=== PATIENT | male | born 1950 | race Caucasian/White ===

== ENCOUNTER 2021-06-29 15:00 | Observation (INO) | payer OTHER ==
[~2021-06-29] VITALS: Ht 188 cm; Wt 93.0 kg
[2021-06-29 09:46] LABS: BASOPHILS % (AUTO) 1.4 % (0.0-5.0); EOSINOPHILS % (AUTO) 1.9 % (0.0-8.0); HEMATOCRIT 44.9 % (42-54); LYMPHOCYTES % (AUTO) 16.9 % (21.0-51.0); MEAN CORPUSCULAR HEMOGLOBIN 31.6 pg (27.0-33.0); MEAN CORPUSCULAR HGB CONC 33.2 g/dL (32.0-36.0); MEAN CORPUSCULAR VOLUME 95.1 fL (79-99); NEUTROPHILS % (AUTO) 67.4 % (40.0-77.0); PLATELET COUNT (AUTO) 246 K/uL (130-400); RED BLOOD CELL COUNT(AUTO) 4.72 MIL/uL (4.50-6.20); RED CELL DISTRIBUTION WIDTH 11.9 % (11.0-15.5); WHITE BLOOD COUNT (AUTO) 5.7 K/uL (4.8-10.8)
[2021-06-29 10:11] LABS: POTASSIUM 5.1 mmol/L (3.5-5.1)
[2021-06-30 09:12] VITALS: BP 113/71
[2021-06-30] MEDS ORDERED: RIVA20TA PO (09:33)
[2021-06-30] MEDS ORDERED: FINA5TAB41 PO (09:33)
[2021-06-30] MEDS ORDERED: DILT300C51 PO (09:33)
[2021-07-01] VITALS (30 sets, daily range): BP systolic 100–138; BP diastolic 6–76
[2021-07-01] MEDS: CEFAZOLIN SODIUM 2 GM VIAL IV SCH ×2 (05:00→07:30)
[2021-07-01] MEDS ORDERED: CEFAZOLIN SODIUM 1 GM VIAL ONE ×2 (06:08→06:50)
[2021-07-01] MEDS ORDERED: LACTATED RINGERS 1000ML 1,000 ML IV ONE (06:08)
[2021-07-01] MEDS ORDERED: LIDOCAINE PF 100MG/5ML (2%) SYRINGE 5ML ONE (06:47)
[2021-07-01] MEDS ORDERED: SUCCINYLCHOLINE CHLORIDE 20 MG/ML 10 ML VIAL ONE (06:47)
[2021-07-01] MEDS ORDERED: PROPOFOL 10 MG/ML 20ML VIAL IV ONE (06:47)
[2021-07-01] MEDS ORDERED: NEOSTIGMINE 5MG/5ML SYR IV ONE (06:48)
[2021-07-01] MEDS ORDERED: ONDANSETRON 4MG INJ ONE (06:48)
[2021-07-01] MEDS ORDERED: DEXAMETHASONE SOD PHOSPHATE 10MG/ML 1ML VIAL ONE ×2 (06:48→06:50)
[2021-07-01] MEDS ORDERED: ROCURONIUM 10MG/1ML SYR 10 MG/ML ML ONE ×2 (06:48→08:01)
[2021-07-01] MEDS ORDERED: GLYCOPYRROLATE 1 MG/5 ML SYRINGE ONE (06:48)
[2021-07-01] MEDS ORDERED: MIDAZOLAM HCL 1 MG/ML 2ML VIAL ONE (06:48)
[2021-07-01] MEDS ORDERED: FENTANYL CITRATE PF 50 MCG/1 ML 2ML VIAL ONE (06:49)
[2021-07-01] MEDS ORDERED: BUPIVACAINE/EPI/PF 0.25% 30ML VIAL IJ ONE (06:50)
[2021-07-01] MEDS ORDERED: MORPHINE PF 100MG/10ML AMP IV ONE (06:51)
[2021-07-01] MEDS ORDERED: THROMBIN-JMI 20000 UNIT KIT TP ONE (06:51)
[2021-07-01] MEDS ORDERED: PHENYLEPHRINE HCL 10 MG/ML 1ML VIAL IV ONE (09:10)
[2021-07-01] MEDS ORDERED: ARTIFICIAL TEARS 3.5 GM OINTMENT ONE (09:56)
[2021-07-01] MEDS ORDERED: MORPHINE 2 MG SYG IVP PRN (10:30)
[2021-07-01] MEDS ORDERED: 0.9%NACL 10ML VIAL IVP PRN (10:30)
[2021-07-01] MEDS: DEXAMETHASONE SOD PHOSPHATE 4 MG/ML 1ML VIAL IVP SCH ×3 (10:30→20:20)
[2021-07-01] MEDS ORDERED: PROMETHAZINE HCL 25 MG/ML 1ML AMPULE IM PRN (10:30)
[2021-07-01] MEDS ORDERED: LACTATED RINGERS 1000ML 1,000 ML IV SCH (10:30)
[2021-07-01] MEDS ORDERED: HYDROCODONE/ACETAMINOPHEN 5/325 MG TAB PO PRN (10:30)
[2021-07-01] MEDS: CEFAZOLIN SODIUM 1 GM VIAL IVP SCH ×2 (16:18→20:20)
[2021-07-01] MEDS ORDERED: FINASTERIDE 5 MG TABLET PO SCH (21:00)
[2021-07-02 00:10] VITALS: BP 100/54
[2021-07-02 04:23] VITALS: BP 102/65
[2021-07-02] MEDS: DEXAMETHASONE SOD PHOSPHATE 4 MG/ML 1ML VIAL IVP SCH (05:35)
[2021-07-02] MEDS: CEFAZOLIN SODIUM 1 GM VIAL IVP SCH (05:35)
[2021-07-02 08:02] VITALS: BP 109/60
[2021-07-02] MEDS ORDERED: DILTIAZEM 180MG SR CAP PO SCH (09:00)
[2021-07-02] MEDS ORDERED: DILTIAZEM 120MG SR CAP PO SCH (09:00)
== END 2021-07-02 10:10 | disposition home or self-care (01) ==
LOC: EDSTATUS 15:00 → DAHIP 07-01 05:45 → 4BH 07-01 13:45
PROVIDERS: ADMIT Neurological Surgery; ATTEND Neurological Surgery
DX: M47.26 Other spondylosis with radiculopathy, lumbar region (principal); Z20.822 Contact with and (suspected) exposure to COVID-19; M48.061 Spinal stenosis, lumbar region without neurogenic claudication; I48.20 Chronic atrial fibrillation, unspecified; M67.48 Ganglion, other site; Z79.899 Other long term (current) drug therapy
CPT/HCPCS: 36415; 63047; 63048 ×2; 71045; 72020; 80048; 85025; 87635; 96374; 96375; 96376 ×2; A4215; A4221; A4222; A4223; A4344; A4649 ×3; A4663; A6260; G0378 ×23; J0330; J0690 ×6; J1100 ×5; J2001; J2250; J2274; J2370; J2405; J2704; J2710; J3010; J3490 ×2; J7120 ×2

== ENCOUNTER → 2023-04-15 | Outpatient (CLI) | payer OTHER ==
[~2023-04-15] MED LIST: DILT300C42 PO; FINA5TAB41 PO; IOHEXOL-350 50ML VIAL IV ONE; IOHEXOL-350 75 ML VIAL IV ONE
== END | disposition home or self-care (01) ==
LOC: RAH 08:09
PROVIDERS: ATTEND Family Medicine
DX: K76.89 Other specified diseases of liver (principal); R79.1 Abnormal coagulation profile; R06.02 Shortness of breath; R05.1 Acute cough; I51.7 Cardiomegaly; M47.9 Spondylosis, unspecified
CPT/HCPCS: 71270; Q9967

== ENCOUNTER → 2023-04-25 | Outpatient (CLI) | payer OTHER ==
[~2023-04-25] MED LIST changes: -IOHEXOL-350 50ML VIAL IV ONE; -IOHEXOL-350 75 ML VIAL IV ONE; +REGADENOSON 0.4 MG/5 ML PF SYG IVP ONE
== END | disposition home or self-care (01) ==
LOC: SHCH 08:50
PROVIDERS: ATTEND Internal Medicine Cardiovascular Disease
DX: I48.20 Chronic atrial fibrillation, unspecified (principal); R07.9 Chest pain, unspecified; G47.33 Obstructive sleep apnea (adult) (pediatric)
CPT/HCPCS: 78452; 96374; 93017; J2785; A9500 ×2

== ENCOUNTER → 2023-05-14 | Outpatient (CLI) | payer OTHER ==
[~2023-05-14] MED LIST changes: -REGADENOSON 0.4 MG/5 ML PF SYG IVP ONE
== END | disposition home or self-care (01) ==
LOC: SHCH 10:58
PROVIDERS: ATTEND Internal Medicine Cardiovascular Disease
DX: I08.1 Rheumatic disorders of both mitral and tricuspid valves (principal); I48.20 Chronic atrial fibrillation, unspecified; G47.33 Obstructive sleep apnea (adult) (pediatric)
CPT/HCPCS: 93306

== ENCOUNTER → 2023-06-07 | Outpatient (CLI) | payer OTHER ==
[~2023-06-07] MED LIST changes: +FURO20TA4 PO; +LORA10TA7 PO; +RIVA20TA PO; +TRAM50TA4 PO
[2023-06-07 12:39] LABS: CARBON DIOXIDE 30 mmol/L (21-32); CHLORIDE 99 mmol/L (101-111); CREATININE 0.9 mg/dL (0.5-1.5); GLOMERULAR FILTR. RATE CALC 90 mL/min (>90); GLUCOSE,RANDOM 93 mg/dL (70-105); POTASSIUM 4.6 mmol/L (3.5-5.1); SODIUM SERUM 136 mmol/L (136-145); UREA NITROGEN, BLOOD 15 mg/dL (7-18)
[2023-06-07 12:57] LABS: DIGOXIN < 0.20 ng/mL (0.50-2.00)
== END | disposition home or self-care (01) ==
LOC: LAB 09:42
PROVIDERS: ATTEND Internal Medicine Cardiovascular Disease
DX: I10 Essential (primary) hypertension (principal); Z79.899 Other long term (current) drug therapy
CPT/HCPCS: 36415; 80048; 80162

== ENCOUNTER 2023-07-19 06:18 | Day surgery (SDC) | payer OTHER ==
[2023-07-15 08:39] LABS: BASOPHILS # (AUTO) 0.08 K/uL (0.00-0.20); BASOPHILS % (AUTO) 1.3 % (0.0-5.0); EOSINOPHILS # (AUTO) 0.12 K/uL (0.00-0.70); EOSINOPHILS % (AUTO) 1.9 % (0.0-8.0); HEMATOCRIT 43.5 % (42-54); IMMATURE GRANULOCYTE ABSOLUTE 0.02 K/uL (0-1); LYMPHOCYTES % (AUTO) 15.6 % (21.0-51.0); MEAN CORPUSCULAR HEMOGLOBIN 29.9 pg (27.0-33.0); MEAN CORPUSCULAR HGB CONC 33.1 g/dL (32.0-36.0); MEAN CORPUSCULAR VOLUME 90.4 fL (79-99); MONOCYTES # (AUTO) 0.9 K/uL (0.1-1.0); MONOCYTES % (AUTO) 13.8 % (3.0-13.0); NEUTROPHILS # (AUTO) 4.3 K/uL (1.8-7.7); NEUTROPHILS % (AUTO) 67.1 % (40.0-77.0); PLATELET COUNT (AUTO) 244 K/uL (130-400); RED BLOOD CELL COUNT(AUTO) 4.81 MIL/uL (4.50-6.20); RED CELL DISTRIBUTION WIDTH 15.3 % (11.0-15.5); WHITE BLOOD COUNT (AUTO) 6.4 K/uL (4.8-10.8)
[2023-07-15 08:54] LABS: CREATININE 0.9 mg/dL (0.5-1.3); INR 1.13 (0.85-1.15); POTASSIUM 5.2 mmol/L (3.5-5.1); PROTHROMBIN TIME 13.2 SEC (9.6-11.6)
[2023-07-15 08:56] LABS: PARTIAL THROMBOPLASTIN TIME 37.2 SEC (26.3-35.5)
[2023-07-15 09:04] VITALS: BP 103/73; PULSE 95; RESP 17
[~2023-07-19] VITALS: Ht 188 cm; Wt 90.0 kg
[2023-07-19] VITALS (7 sets, daily range): BP systolic 101–116; BP diastolic 64–73; PULSE 71–92; RESP 13–20
[~2023-07-19 06:18] MED LIST changes: -TRAM50TA4 PO
[2023-07-19] MEDS: 0.9%NACL 1000ML 1,000 ML IV ONE (07:07)
[2023-07-19] MEDS ORDERED: LIDOCAINE HCL 400MG/20ML VIAL ONE (09:18)
[2023-07-19] MEDS ORDERED: CEFAZOLIN SODIUM 1 GM VIAL ONE (09:19)
[2023-07-19] MEDS ORDERED: MIDAZOLAM HCL 1 MG/ML 2ML VIAL ONE ×2 (09:19→10:36)
[2023-07-19] MEDS ORDERED: LIDOCAINE HCL 1% MDV 50ML VIAL ONE (09:19)
[2023-07-19] MEDS ORDERED: MEPERIDINE-PF 25 MG/ML SYG ONE ×2 (09:19→10:36)
[2023-07-19] MEDS ORDERED: BUPIVACAINE/PF 0.25% 30ML VIAL IJ ONE (09:20)
[2023-07-19] MEDS ORDERED: HEPARIN 10,000 UNIT/10ML (1,000 UNIT/ML) VIAL ONE (09:20)
[2023-07-19] MEDS ORDERED: IODIXANOL 320 MG/ML 100 ML VIAL ONE (09:20)
[2023-07-19] MEDS ORDERED: ACETAMINOPHEN WITH CODEINE 1 TAB TAB PO PRN (13:00)
[2023-07-19] MEDS ORDERED: ACETAMINOPHEN 500 MG TABLET PO PRN (13:00)
[2023-07-19] MEDS ORDERED: TRAM50TA4 PO (13:03)
[2023-07-19] MEDS ORDERED: RIVA20TA PO (14:43)
== END 2023-07-19 16:40 | disposition home or self-care (01) ==
LOC: DAH 06:18
PROVIDERS: ATTEND Internal Medicine Cardiovascular Disease
DX: I48.21 Permanent atrial fibrillation (principal); I44.2 Atrioventricular block, complete; I42.0 Dilated cardiomyopathy; I50.22 Chronic systolic (congestive) heart failure; G47.33 Obstructive sleep apnea (adult) (pediatric); Z79.899 Other long term (current) drug therapy; Z79.01 Long term (current) use of anticoagulants; Z98.890 Other specified postprocedural states; Z86.16 Personal history of COVID-19
CPT/HCPCS: 80048 ×2; 85025; 85610; 85730; 36415 ×2; 93005 ×2; 33207; 33225; 93619; 93650; 71045; C1769; C2621; C1900; C1898; A4649 ×2; C1732; C1760; J0690; J3490 ×2; J7030; J0665; J1644 ×2; J2250 ×2; J2175 ×2; Q9967; A4215; A4222; A4221; A4663; A4216; A4606; A4223 ×3; 99156; 99157

== ENCOUNTER → 2023-07-27 | Outpatient (CLI) | payer OTHER ==
[~2023-07-27] MED LIST changes: -DILT300C42 PO; +TRAM50TA4 PO
== END | disposition home or self-care (01) ==
LOC: RAH 09:25
PROVIDERS: ATTEND Internal Medicine Cardiovascular Disease
DX: M47.814 Spondylosis without myelopathy or radiculopathy, thoracic region (principal); Z95.0 Presence of cardiac pacemaker
CPT/HCPCS: 71046

== ENCOUNTER → 2023-08-17 | Outpatient (CLI) | payer OTHER ==
[2023-08-17 21:49] VITALS: PULSE 73; RESP 18
[2023-08-17 22:17] VITALS: PULSE 71; RESP 13
[2023-08-17 22:30] VITALS: PULSE 71; RESP 15
[2023-08-17 22:49] VITALS: PULSE 70; RESP 18
[2023-08-17 23:36] VITALS: PULSE 71; RESP 20
[2023-08-18] VITALS (13 sets, daily range): PULSE 60–76; RESP 9–29
== END | disposition home or self-care (01) ==
LOC: SLP 20:30
PROVIDERS: ATTEND Family Medicine
DX: G47.33 Obstructive sleep apnea (adult) (pediatric) (principal); G47.34 Idiopathic sleep related nonobstructive alveolar hypoventilation
CPT/HCPCS: 95811